=== PATIENT | male | born 1975 | race Two or more races ===

== ENCOUNTER → 2021-07-02 | Day surgery (SDC) | payer OTHER | END | disposition home or self-care (01) | LOC: AMB-ENDOS 08:57 | PROVIDERS: ATTEND Colon & Rectal Surgery | DX: K63.5 Polyp of colon (principal); K64.8 Other hemorrhoids; Z12.11 Encounter for screening for malignant neoplasm of colon ==

== ENCOUNTER 2023-01-10 10:39 | Inpatient (IN) | payer OTHER ==
[~2023-01-10] VITALS: Ht 167.6 cm; Wt 61.7 kg
[2023-01-10] MEDS ORDERED: HYOSCYAMINE0.125 M1 PO (10:52)
== END 2023-01-12 11:44 | disposition home or self-care (01) | DRG 392 ==
LOC: ER 10:39 → SURG 20:54 → SEC-K 20:54 → SURG 21:00
PROVIDERS: ADMIT Internal Medicine; ATTEND Internal Medicine
PROC: BW21YZZ Computerized Tomography (CT Scan) of Abdomen and Pelvis using Other Contrast (ICD-10-PCS; principal; 2023-01-10)
DX: K57.92 Diverticulitis of intestine, part unspecified, without perforation or abscess without bleeding (principal)

== ENCOUNTER 2024-09-06 20:53 | Inpatient (IN) | payer OTHER ==
[~2024-09-06] VITALS: Ht 167.6 cm; Wt 61.2 kg
[~2024-09-06 20:53] MED LIST: HYOSCYAMINE0.125 M1 PO
--- NOTE | 2024-09-06 21:01 | NUR ---
PACIENTE ALERTA Y ORIENTADO X 3. REFIERE PADECER DE DIVERTICULITIS Y QUE AUNQUE NO TIENE DOLOR SIENTE KAYLI LEVE PRESION EN OCASIONES EN AREA PELVICA Y DESEA DESCARTAR QUE NO SEA DIVERTICULITIS. PACIENTE ASINTOMATICO AL REALIZAR TRIAGE.
[2024-09-06] MEDS ORDERED: 0.9 % SODIUM CHLORIDE 1,000 ML IV STA (21:48)
[2024-09-06] MEDS ORDERED: METRONIDAZOLE/SODIUM CHLORIDE 500 MG/100 ML PIGGYBACK IV STA (21:49)
[2024-09-06] MEDS ORDERED: METRONIDAZOLE/SODIUM CHLORIDE 500 MG/100 ML PIGGYBACK IV ONE (22:03)
[2024-09-06 22:08] LABS: HEMOGLOBIN 14.2 g/dL (13-16.00); MEAN CELL VOLUME 83.7 fL (80.0-100.00); MEAN CORPUSCULAR HGB CONC 34.7 g/dl (32.0-36.0); PLATELET COUNT 301 K/uL (150-450); RED CELL DISTRIBUTION WIDTH 14.5 % (11.5-14.5)
--- NOTE | 2024-09-06 22:19 | NUR ---
SE EDUCA A PACIENTE SOBRE TRATAMIENTO MEDICO EL CUAL REFIERE ENTENDER SE REALIZA TUSHAR DE MUESTRAS Y [facility]MINIST[facility]ION DE [facility] ORDEN MEDICA. SE MANTIENE BAJO OBSERVACION PARA CONTINUACION DE TRATAMIENTO.
[2024-09-06 22:21] LABS: INR 1.06; PARTIAL THROMBOPLASTIN TIME 32.8 SECONDS (22.0-34.0); PROTHROMBIN TIME 11.5 SECONDS (9.0-11.5)
[2024-09-06 22:25] LABS: BILIRUBIN TOTAL 0.79 mg/dL (0.3-1.2); CALCIUM 9.2 mg/dL (8.5-10.1); CREATININE SERUM 1.04 mg/dL (0.70-1.30); GFR 76.55; GLOBULINA 3.9 G/DL (2.4-3.5); POTASSIUM 3.76 mEq/L (3.5-5.1); TOTAL PROTEIN 7.9 gm/dL (6.4-8.2)
[2024-09-06] MEDS ORDERED: CIPROFLOXACIN IN 5 % DEXTROSE 400 MG/200 ML PIGGYBAG IV STA (22:31)
[2024-09-06] MEDS ORDERED: CIPROFLOXACIN IN 5 % DEXTROSE 400 MG/200 ML PIGGYBAG IV ONE (22:34)
[2024-09-07 01:28] LABS: PH,URINE 5.5 (5.0-8.0); URINE APPEARANCE Clear; URINE BILIRRUBIN Negative (NEGATIVE); URINE BLOOD Negative; URINE COLOR Yellow; URINE GLUCOSE Negative (NEGATIVE); URINE KETONE Negative (NEGATIVE); URINE LEUKOCYTE Negative; URINE NITRATE Negative; URINE PROTEIN Negative (NEGATIVE); URINE UROBILINOGEN 0.2 E.U./dl
[2024-09-07 01:31] LABS: URINE RBC 3.2 uL (0.0-20.8)
[2024-09-07 01:44] LABS: URINE BACTERIA 1.2 uL (0.0-1933); URINE EPITHELIAL CELLS 0.3 uL (0.0-38.8); URINE WBC 1.1 uL (0.0-23.2)
--- NOTE | 2024-09-07 07:21 | NUR ---
SE RECIBE PTE ALERTA Y ORIENTADO X3 EN MISHA BAJA CON BARANDAS ELEVADAS. CANALIZADO EN BRAZO DERECHO CON ANGIO #18 PATENTE FREYA DE EDEMA Y ENROJECIMIENTO. RECIBIENDO .9NSS BAJANDO A 120 MLS/HR. PTE NO REFIERE NI QUEJAS NI MOLESTIA AL MOMENTO. SE ORIENTA A NOTIFICAR CAMBIOS. PENDIENTE CONSULTA CON DR. GAYLE.
[2024-09-07] MEDS ORDERED: METRONIDAZOLE/SODIUM CHLORIDE 500 MG/100 ML PIGGYBACK IV ONE (08:38)
[2024-09-07] MEDS ORDERED: CIPROFLOXACIN IN 5 % DEXTROSE 400 MG/200 ML PIGGYBAG IV ONE (08:38)
[2024-09-07] MEDS ORDERED: CIPROFLOXACIN IN 5 % DEXTROSE 200 ML IV SCH (09:00)
[2024-09-07] MEDS ORDERED: METRONIDAZOLE/SODIUM CHLORIDE 100 ML IV SCH (09:00)
[2024-09-07] MEDS ORDERED: ONDANSETRON HCL 4 MG in 0.9 % SODIUM CHLORIDE 50 ML IV PRN (11:30)
[2024-09-07] MEDS ORDERED: MEPERIDINE HCL/PF 50 MG/ML VIAL IM PRN (11:30)
[2024-09-07] MEDS ORDERED: 0.9 % SODIUM CHLORIDE 1,000 ML IV SCH (11:30)
[2024-09-07] MEDS ORDERED: ACETAMINOPHEN 325 MG TABLET PO PRN (11:30)
[2024-09-07] MEDS ORDERED: PANTOPRAZOLE SODIUM 40 MG in 0.9 % SODIUM CHLORIDE 8 ML IV PUSH SCH (12:00)
[2024-09-07 13:49] VITALS: BP 98/62; O2SAT 100
[2024-09-07 19:00] VITALS: BP 128/68; O2SAT 100
[2024-09-07] MEDS ORDERED: ACETAMINOPHEN 500 MG GEL..CAP PO PRN (19:30)
[2024-09-08] VITALS: BP 111/56; O2SAT 100
[2024-09-08 06:49] LABS: HEMATOCRIT 39.6 % (39.0-48.0); HEMOGLOBIN 13.7 g/dL (13-16.00); MEAN CELL VOLUME 83.9 fL (80.0-100.00); MEAN CORPUSCULAR HGB CONC 34.6 g/dl (32.0-36.0); PLATELET COUNT 264 K/uL (150-450); RED BLOOD COUNT 4.72 M/uL (4.00-6.00); RED CELL DISTRIBUTION WIDTH 14.3 % (11.5-14.5)
[2024-09-08 08:00] VITALS: BP 108/73; O2SAT 100
[2024-09-08 17:00] VITALS: BP 119/66; O2SAT 98
[2024-09-09 01:03] VITALS: BP 111/69; O2SAT 100
[2024-09-09 08:00] VITALS: BP 125/73; O2SAT 98
== END 2024-09-09 15:18 | disposition home or self-care (01) | DRG 392 ==
LOC: ER 20:55 → SURH 09-07 11:34 → SEC-K 09-07 11:34 → SURG 09-07 15:35 → SURH 09-07 17:31
PROVIDERS: General Practice; ADMIT Internal Medicine; ATTEND Internal Medicine
PROC: BW21ZZZ Computerized Tomography (CT Scan) of Abdomen and Pelvis (ICD-10-PCS; principal; 2024-09-06)
DX: K90.49 Malabsorption due to intolerance, not elsewhere classified (principal); K57.32 Diverticulitis of large intestine without perforation or abscess without bleeding

== ENCOUNTER 2024-10-18 07:54 | Emergency (ER) | payer OTHER ==
[~2024-10-18] VITALS: Ht 167.6 cm; Wt 59.0 kg
[2024-10-18 08:21] VITALS: BP 138/88; O2SAT 100
[2024-10-18 09:39] LABS: HEMATOCRIT 41.8 % (39.0-48.0); HEMOGLOBIN 14.2 g/dL (13-16.00); MEAN CELL VOLUME 83.5 fL (80.0-100.00); MEAN CORPUSCULAR HEMOGLOBIN 28.3 pg (27.00-32.0); PLATELET COUNT 417 K/uL (150-450); RED BLOOD COUNT 5.01 M/uL (4.00-6.00); RED CELL DISTRIBUTION WIDTH 14.4 % (11.5-14.5)
[2024-10-18 10:12] LABS: CALCIUM 9.6 mg/dL (8.5-10.1); CREATININE SERUM 0.96 mg/dL (0.70-1.30); GFR 83.6; POTASSIUM 4.16 mEq/L (3.5-5.1)
[2024-10-18 11:00] LABS: URINE APPEARANCE Turbid; URINE BILIRRUBIN Negative (NEGATIVE); URINE BLOOD Large; URINE COLOR Yellow; URINE GLUCOSE Negative (NEGATIVE); URINE KETONE Negative (NEGATIVE); URINE LEUKOCYTE Large; URINE NITRATE Negative; URINE UROBILINOGEN 0.2 E.U./dl
[2024-10-18 11:07] LABS: URINE BACTERIA 5855.5 uL (0.0-1933); URINE CAST 13.56 uL (0.0-1.40); URINE EPITHELIAL CELLS 45.9 uL (0.0-38.8); URINE RBC 25.8 uL (0.0-20.8)
[2024-10-18 11:22] LABS: URINE PROTEIN 100 (NEGATIVE); URINE WBC > 5548.3 uL (0.0-23.2)
== END 2024-10-18 11:51 | disposition home or self-care (01) ==
LOC: ER 07:57
PROVIDERS: General Practice
DX: N39.0 Urinary tract infection, site not specified (principal); R30.0 Dysuria; K57.30 Diverticulosis of large intestine without perforation or abscess without bleeding

== ENCOUNTER 2024-11-03 10:42 | Emergency (ER) | payer OTHER ==
[~2024-11-03] VITALS: Ht 167.6 cm; Wt 57.6 kg
== END 2024-11-03 11:52 | disposition home or self-care (01) ==
LOC: ER 10:45
DX: R30.0 Dysuria (principal)

== ENCOUNTER 2025-04-11 09:54 | Day surgery (SDC) | payer OTHER ==
[2025-04-11] MEDS ORDERED: fentaNYL CITRATE 50 MCG/ML AMPUL IV PUSH ONE (15:15)
[2025-04-11] MEDS ORDERED: MIDAZOLAM HCL 2 MG/2 ML VIAL IV ONE (15:15)
[2025-04-11] MEDS ORDERED: ONDANSETRON HCL 2 MG/ML VIAL IV ONE (15:15)
[2025-04-11] MEDS ORDERED: DIPHENHYDRAMINE HCL 50 MG/ML VIAL 1ML IV ONE (15:15)
== END 2025-04-11 17:25 | disposition home or self-care (01) ==
LOC: AMB-ENDOS 09:54
PROVIDERS: ATTEND Colon & Rectal Surgery
DX: K63.5 Polyp of colon (principal); K57.32 Diverticulitis of large intestine without perforation or abscess without bleeding; Z12.11 Encounter for screening for malignant neoplasm of colon; Z12.12 Encounter for screening for malignant neoplasm of rectum